=== PATIENT | female | born 1945 | race Caucasian/White ===

== ENCOUNTER 2018-04-22 21:58 | Inpatient (IN) ==
--- NOTE | 2018-04-22 22:52 | Emergency Department Note ---
Disposition Clinical Impression: Hyponatremia, RENETTA (acute kidney injury), Sepsis secondary to UTI, Hematuria, Pyelonephritis UTI (urinary tract infection) Qualifiers: Urinary tract infection type: acute pyelonephritis Qualified Code(s): N10 - Acute pyelonephritis Leukocytosis Qualifiers: Leukocytosis type: other Qualified Code(s): D72.828 - Other elevated white blood cell count Disposition: Admitted As Inpatient Condition: Fair Time of Disposition: 01:45 Recheck wound or abnormal lab - General Chief Complaint: ED Recheck/Abnormal Lab/Rx Stated Complaint: abnormal labs Time Seen by Provider: 04/22/18 22:16 Source: patient, family Mode of arrival: ambulatory Limitations: no limitations Nursing Notes Reviewed: Yes Vital Signs Reviewed: Yes - History of Present Illness HPI Narrative: Patient presents to the ED for abnormal lab work. Patient saw her PCP yesterday who ordered lab work and was called today to come to the ER for a leukocytosis and elevated inflammatory markers as well as acute kidney injury. Patient has had nausea, vomiting and diarrhea for the last week. He also had a mild nonproductive cough. Has had some chills but no fevers. Just felt really weak and tired. No real shortness of breath or chest pain. Has some diffuse, crampy abdominal pain. No melena or hematochezia. - Related Data Allergies Allergy/AdvReac Type Severity Reaction Status Date / Time Penicillins Allergy Rash Verified 04/22/18 22:04 Review of Systems: As reviewed in the HPI. All other systems reviewed are negative or normal. Past Medical History - Past Medical History Attestation: Yes The following information was validated with the patient. Source: patient Medical history: Reports: arthritis, hypertension Psychiatric history: Reports: no psych history - Social History Smoking Status: Never smoker Alcohol use: Reports: occasionally Drug use: Reports: none Physical Exam CONSTITUTIONAL: [well appearing in no acute distress] SKIN: [Warm, dry, and intact without rash] EYES: [extraocular movements are grossly intact, clear conjunctiva] HENT: [Normocephalic, atraumatic, moist mucus membranes] NECK: [no obvious swelling, normal range of motion] PULMONARY: [normal chest rise and fall, no respiratory distress or stridor CARDIOVASCULAR: [regular rate, distal extremities are warm and well perfused, cap refill normal] GASTROINSTESTINAL: [nondistended, mildly tender] GENITOURINARY: [deferred] NEUROLOGIC: [normal speech, moves all extremities] MUSCULOSKELETAL: [no gross deformities, atraumatic] PSYCHIATRIC: [normal mood and affect] - General Limitations: no limitations General appearance: alert, in no apparent distress Course - Consultations Consultation #1: Patient admitted to the hospitalist service. Time: 01:45 Vital Signs Temperature 98.2 F 04/22/18 22:04 Pulse Rate 96 04/22/18 22:04 Respiratory Rate 20 04/22/18 22:04 Blood Pressure 107/70 04/22/18 22:04 O2 Sat by Pulse Oximetry 92 04/22/18 22:04 Temperature 99.7 F H 04/23/18 02:50 Pulse Rate 106 04/23/18 02:50 Respiratory Rate 18 04/23/18 02:50 Blood Pressure 112/75 04/23/18 02:50 O2 Sat by Pulse Oximetry 90 04/23/18 02:50 Oxygen Delivery Oxygen Delivery Room Air Recheck wound or abnormal lab - Lab Data Result diagrams: 04/22/18 23:12 Lab Results 04/22/18 04/22/18 04/22/18 Range/Units 23:12 23:40 23:40 Sodium 131 L (136-145) mEq/L Potassium 3.6 (3.5-5.1) mEq/L Chloride 98 (98-107) mEq/L Carbon Dioxide 22 L (23-29) mEq/L BUN 48 H (8-23) mg/dL Creatinine 2.36 H (0.60-1.20) mg/dL Est GFR ( Amer) 25 L (> 60) Est GFR (Non-Af Amer) 20 L (> 60) BUN/Creatinine Ratio 20 (6-26) Glucose 129 H (70-105) mg/dL Calculated Osmolality 286 (280-300) Lactic Acid (0.5-2.2) mmol/L Calcium 8.8 (8.6-10.3) mg/dL Phosphorus 2.2 L (2.7-4.5) mg/dL Creatine Kinase 35 (30-223) Units/L Albumin 3.3 L (3.5-5.7) g/dL Urine Color Yellow (Yellow) Urine Clarity Turbid A (Clear) Urine pH 5.5 (5.0-8.0) pH Units Ur Specific [place] 1.015 (1.010-1.025) Urine Protein 100 H (Neg-Trace) mg/dL Urine Glucose (UA) Normal (Normal) mg/dL Urine Ketones Negative (Negative) mg/dL Urine Blood Large H (Negative) Urine Nitrite Negative (Negative) Urine Bilirubin Negative (Negative) Urine Urobilinogen Normal (Normal) mg/dL Ur Leukocyte Esterase Large H (Negative) Urine Microscopic RBC 15-30 H (0-3) per hpf Urine Microscopic WBC TNTC H (0-3) per hpf Ur Squamous Epith Cells Many H (None-Few) per lpf Urine Bacteria Many H (None-Few) per hpf Granular Casts Present H (None Seen) per lpf Ur Culture Indicated? NO. A (NO) Urine Creatinine 138 mg/dL Urine Sodium 24.0 mEq/L 04/23/18 Range/Units 01:00 Sodium (136-145) mEq/L Potassium (3.5-5.1) mEq/L Chloride (98-107) mEq/L Carbon Dioxide (23-29) mEq/L BUN (8-23) mg/dL Creatinine (0.60-1.20) mg/dL Est GFR ( Amer) (> 60) Est GFR (Non-Af Amer) (> 60) BUN/Creatinine Ratio (6-26) Glucose (70-105) mg/dL Calculated Osmolality (280-300) Lactic Acid 1.0 (0.5-2.2) mmol/L Calcium (8.6-10.3) mg/dL Phosphorus (2.7-4.5) mg/dL Creatine Kinase (30-223) Units/L Albumin (3.5-5.7) g/dL Urine Color (Yellow) Urine Clarity (Clear) Urine pH (5.0-8.0) pH Units Ur Specific [place] (1.010-1.025) Urine Protein (Neg-Trace) mg/dL Urine Glucose (UA) (Normal) mg/dL Urine Ketones (Negative) mg/dL Urine Blood (Negative) Urine Nitrite (Negative) Urine Bilirubin (Negative) Urine Urobilinogen (Normal) mg/dL Ur Leukocyte Esterase (Negative) Urine Microscopic RBC (0-3) per hpf Urine Microscopic WBC (0-3) per hpf Ur Squamous Epith Cells (None-Few) per lpf Urine Bacteria (None-Few) per hpf Granular Casts (None Seen) per lpf Ur Culture Indicated? (NO) Urine Creatinine mg/dL Urine Sodium mEq/L Attestation Statement - Attestation Attestation: I examined this patient and my medical decision-making was reviewed with the Resident Physician. I agree with the documented findings, disposition and treatment plan as described except to the extent set forth below. The high probability of a clinically significant, sudden or life threatening deterioration of the [renovascular] system(s) required my full and direct attention, intervention and personal management. The aggregate critical care time was [20] minutes. This time is in addition to time spent performing reported procedures but includes the following: [x] Data Review and interpretation [x] Patient assessment and monitoring of vital signs [x] Documentation [x] Medication orders and management
[2018-04-22 23:47] LABS: Bilirubin,Urine Negative (Negative); Blood,Urine Large (Negative); Clarity,Urine Turbid (Clear); Color,Urine Yellow (Yellow); Glucose,Urine (UA) Normal (Normal); Ketones,Urine Negative (Negative); Leukocyte Esterase,Urine Large (Negative); Nitrite,Urine Negative (Negative); PH,Urine 5.5 pH Units (5.0-8.0); Protein,Urine 100 mg/dL (Neg-Trace); Specific Gravity,Urine 1.015 (1.010-1.025); Urobilinogen,Urine Normal (Normal)
[2018-04-22 23:50] LABS: Bacteria,Urine Many per hpf (None-Few); RBC,Urine 15-30 per hpf (0-3); Squamous Epithelial Cell,Urine Many per lpf (None-Few); WBC,Urine TNTC per hpf (0-3)
[2018-04-22 23:53] LABS: Albumin 3.3 g/dL (3.5-5.7); Calcium 8.8 mg/dL (8.6-10.3); Phosphorous 2.2 mg/dL (2.7-4.5); Potassium 3.6 mEq/L (3.5-5.1)
[2018-04-23 00:01] LABS: Granular Casts,Urine Present per lpf (None Seen)
[2018-04-23] MEDS ORDERED: 0.9 % Sodium Chloride 1,000 ML IVC ONE ×2 (00:08→01:46)
[2018-04-23] MEDS ORDERED: Levofloxacin 750 MG/150 ML 750 MG/150 ML BAG IVPB ONE (00:43)
[2018-04-23] MEDS ORDERED: Naloxone 0.4 MG/ML INJ IVP PRN (02:02)
[2018-04-23] MEDS ORDERED: Ondansetron 4 MG/2 ML VIAL IVP PRN (02:04)
[2018-04-23] MEDS ORDERED: Prochlorperazine 10 MG/2 ML VIAL IVP PRN (02:04)
--- NOTE | 2018-04-23 02:08 | Internal Med History&Physical ---
Date of Encounter: 04/23/18 Time of Encounter: 02:06 Internal Medicine - H&P: HPI Chief complaint: N/V/D , flu like symptoms History of present illness: Ms. Mantilla is a 72 year old female with history of hypertension, hyperlipidemia who presents with nausea vomiting diarrhea and felt that she had contracted the flu. She develops symptoms since Thursday with persistent nausea vomiting periumbilical abdominal pain associated with nonbloody diarrhea and relative anorexia with decreased by mouth intake. She felt that she might have had the flu with associated fevers and chills. She has a nonproductive cough that associated with a subjective sensation that her "head is exploding" On review she denies any dysuria or urinary frequency or lower urinary tract symptoms. She saw her PCP today and was advised for admission after being found to be in acute kidney injury. CT/CT abd pelvis wo no iv no oral IMPRESSION: Bibasilar airspace disease, atelectasis and/or pneumonia. Fatty infiltration of the liver. Bilateral perinephric and periureteral stranding, not well evaluated on this noncontrast study. Correlation for pyelonephritis is recommended. Small hiatal hernia. Distal colonic diverticulosis without radiographic evidence of active inflammation. XR/XR chest 2V IMPRESSION: Possible trace pleural effusions with bibasilar scarring or atelectasis. Past Med Surg Social Fam HX - Past Medical History Medical history: arthritis, hypertension Psychiatric history: no psych history - Past Surgical History Additional surgical history: knee surgery - Social History Smoking Status: Never smoker Alcohol use: occasionally Drug use: none Internal Medicine - H&P: Meds 3 Allergy/AdvReac Type Severity Reaction Status Date / Time Penicillins Allergy Rash Verified 04/22/18 22:04 All Systems PM: A 10-system review of systems was performed and is negative for pertinent findings except as documented above in the HPI. Review of systems: ROS 14 point review of systems reviewed as best as possible given presentation. Pertinent positive or negative as per HPI or otherwise reviewed as negative - Constitutional Vitals: Temp Pulse Resp BP Pulse Ox 98.2 F 91 16 118/75 91 04/22/18 22:04 04/23/18 00:06 04/23/18 00:06 04/23/18 00:06 04/23/18 00:06 Exam: General - AAO x 3 Psych - Appropriate affect/speech. No agitation Eyes - BRISEIDA. Eye lids intact. No scleral icterus Neuro - No gross peripheral or central neuro deficits on inspection Heart - Sinus. RRR. S1 and S2 present. No added HS/murmurs appreciated. No elevated JVD appreciated. Lung - Adequate air entry b/l, bibasal crackles appreciated. No wheeze GI - Soft, non-tender. No hepatosplenomegaly/ascites. BS+ - No CVA/suprapubic tenderness or palpable bladder distension Skin - Intact. No rash/petechiae/ecchymosis. Warm extremities Internal Med - H&P Results - Labs CBC & Chem 7: 04/22/18 23:12 - Assessment and plan (1) Viral syndrome Current Visit: Yes Status: Acute Assessment and plan: possible viral syndrome supportive care (2) PNA (pneumonia) Current Visit: Yes Status: Acute Assessment and plan: possible viral syndrome with superimposed PNA send serologies mucinex spirometer empiric IV levaquin Qualifiers: Pneumonia type: due to unspecified organism Laterality: bilateral Lung location: lower lobe of lung Qualified Code(s): J18.1 - Lobar pneumonia, unspecified organism (3) RENETTA (acute kidney injury) Current Visit: Yes Status: Acute Assessment and plan: due to pre-renal IVF trend labs (4) Hyponatremia Current Visit: Yes Status: Acute Assessment and plan: 2/2 dehydration, treat with hydration (5) Leukocytosis Current Visit: Yes Status: Acute Assessment and plan: monitor for now Qualifiers: Leukocytosis type: other Qualified Code(s): D72.828 - Other elevated white blood cell count (6) HTN (hypertension) Current Visit: Yes Status: Acute Assessment and plan: hold meds for now given illness, RENETTA restart when symptoms better Qualifiers: Hypertension type: essential hypertension Qualified Code(s): I10 - Essential (primary) hypertension (7) Pyuria Current Visit: Yes Status: Acute Assessment and plan: contaminated, due true UTI (8) HLD (hyperlipidemia) Current Visit: Yes Status: Acute Assessment and plan: restart statin when she feels better Qualifiers: Hyperlipidemia type: mixed hyperlipidemia Qualified Code(s): E78.2 - Mixed hyperlipidemia - Time Spent With Patient Total time spent is greater than 50% in coordination of care (as documented) at patient's floor/unit and/or counseling patient:
[2018-04-23] MEDS: Ringers Solution, Lactated 1,000 ML IVC SCH (03:04)
--- NOTE | 2018-04-23 03:29 | Emergency Department Note ---
Disposition Clinical Impression: Hyponatremia, RENETTA (acute kidney injury), Sepsis secondary to UTI, Hematuria, Pyelonephritis UTI (urinary tract infection) Qualifiers: Urinary tract infection type: acute pyelonephritis Qualified Code(s): N10 - Acute pyelonephritis Leukocytosis Qualifiers: Leukocytosis type: other Qualified Code(s): D72.828 - Other elevated white blood cell count Disposition: Admitted As Inpatient Condition: Fair General Adult HPI - General Chief complaint: ED Recheck/Abnormal Lab/Rx Stated complaint: abnormal labs Time Seen by Provider: 04/22/18 22:16 Source: patient, family Mode of arrival: ambulatory Limitations: no limitations - History of Present Illness Pain Scale: 0 - Related Data Allergies Allergy/AdvReac Type Severity Reaction Status Date / Time Penicillins Allergy Rash Verified 04/22/18 22:04 Past Medical History - Past Medical History Medical history: Reports: arthritis, hypertension Psychiatric history: Reports: no psych history - Social History Smoking Status: Never smoker Smokeless Tobacco Status: No Alcohol use: Reports: occasionally Drug use: Reports: none Physical Exam - General Limitations: no limitations General appearance: alert, in no apparent distress Course Vital Signs Temperature 98.2 F 04/22/18 22:04 Pulse Rate 96 04/22/18 22:04 Respiratory Rate 20 04/22/18 22:04 Blood Pressure 107/70 04/22/18 22:04 O2 Sat by Pulse Oximetry 92 04/22/18 22:04 Temperature 99.7 F H 04/23/18 02:50 Pulse Rate 106 04/23/18 02:50 Respiratory Rate 18 04/23/18 02:50 Blood Pressure 112/75 04/23/18 02:50 O2 Sat by Pulse Oximetry 90 04/23/18 02:50 Oxygen Delivery Oxygen Delivery Room Air Medical Decision Making - Lab Data Result diagrams: 04/22/18 23:12 Lab Results 04/22/18 04/22/18 04/22/18 Range/Units 23:12 23:40 23:40 Sodium 131 L (136-145) mEq/L Potassium 3.6 (3.5-5.1) mEq/L Chloride 98 (98-107) mEq/L Carbon Dioxide 22 L (23-29) mEq/L BUN 48 H (8-23) mg/dL Creatinine 2.36 H (0.60-1.20) mg/dL Est GFR ( Amer) 25 L (> 60) Est GFR (Non-Af Amer) 20 L (> 60) BUN/Creatinine Ratio 20 (6-26) Glucose 129 H (70-105) mg/dL Calculated Osmolality 286 (280-300) Lactic Acid (0.5-2.2) mmol/L Calcium 8.8 (8.6-10.3) mg/dL Phosphorus 2.2 L (2.7-4.5) mg/dL Creatine Kinase 35 (30-223) Units/L Albumin 3.3 L (3.5-5.7) g/dL Urine Color Yellow (Yellow) Urine Clarity Turbid A (Clear) Urine pH 5.5 (5.0-8.0) pH Units Ur Specific [place] 1.015 (1.010-1.025) Urine Protein 100 H (Neg-Trace) mg/dL Urine Glucose (UA) Normal (Normal) mg/dL Urine Ketones Negative (Negative) mg/dL Urine Blood Large H (Negative) Urine Nitrite Negative (Negative) Urine Bilirubin Negative (Negative) Urine Urobilinogen Normal (Normal) mg/dL Ur Leukocyte Esterase Large H (Negative) Urine Microscopic RBC 15-30 H (0-3) per hpf Urine Microscopic WBC TNTC H (0-3) per hpf Ur Squamous Epith Cells Many H (None-Few) per lpf Urine Bacteria Many H (None-Few) per hpf Granular Casts Present H (None Seen) per lpf Ur Culture Indicated? NO. A (NO) Urine Creatinine 138 mg/dL Urine Sodium 24.0 mEq/L 04/23/18 Range/Units 01:00 Sodium (136-145) mEq/L Potassium (3.5-5.1) mEq/L Chloride (98-107) mEq/L Carbon Dioxide (23-29) mEq/L BUN (8-23) mg/dL Creatinine (0.60-1.20) mg/dL Est GFR ( Amer) (> 60) Est GFR (Non-Af Amer) (> 60) BUN/Creatinine Ratio (6-26) Glucose (70-105) mg/dL Calculated Osmolality (280-300) Lactic Acid 1.0 (0.5-2.2) mmol/L Calcium (8.6-10.3) mg/dL Phosphorus (2.7-4.5) mg/dL Creatine Kinase (30-223) Units/L Albumin (3.5-5.7) g/dL Urine Color (Yellow) Urine Clarity (Clear) Urine pH (5.0-8.0) pH Units Ur Specific [place] (1.010-1.025) Urine Protein (Neg-Trace) mg/dL Urine Glucose (UA) (Normal) mg/dL Urine Ketones (Negative) mg/dL Urine Blood (Negative) Urine Nitrite (Negative) Urine Bilirubin (Negative) Urine Urobilinogen (Normal) mg/dL Ur Leukocyte Esterase (Negative) Urine Microscopic RBC (0-3) per hpf Urine Microscopic WBC (0-3) per hpf Ur Squamous Epith Cells (None-Few) per lpf Urine Bacteria (None-Few) per hpf Granular Casts (None Seen) per lpf Ur Culture Indicated? (NO) Urine Creatinine mg/dL Urine Sodium mEq/L Attestation Statement - Attestation Attestation: I examined this patient and my medical decision-making was reviewed with the Resident Physician. I agree with the documented findings, disposition and treatment plan as described except to the extent set forth below. 72-year-old female comes ED because of general malaise, coughing, generalized weakness. Symptoms have been evolving for the past couple days prompting her to see her primary care physician. Labs obtained and she was later called to go to the ED for renal insufficiency. She has had some subjective fevers. Complains of mild intermittent headache. He also has pain across further chest with deep breathing. Cough has been nonproductive. No dysuria, hematuria or polyuria. No focal joint pain but does complain of diffuse myalgia Pleasant elderly female who is in no apparent physiologic distress. He is remains are dry. Neck is supple without meningeal signs. No cervical adenopathy. Chest with migrating rhonchi in the bases. No focal consolidation. No current wheezing. Tender to palpation along the anterior chest wall. Cardiac exam regular abdomen soft, nondistended and nontender to palpation. Extremities warm and dry. Her labs from earlier reviewed and she had significant leukocytosis with white count of 18,000. She had marked decrease in her baseline renal function and marketed elevation of her CRP and sedimentation rate. Urine with significant large number leukocytes, negative nitrates. CT abdomen consistent with bilateral hydronephrosis but without obvious ureteral calculi. Also questionable basilar pneumonia. She started on broad-spectrum antibiotics and will be admitted for further treatment and evaluation.
[2018-04-23] MEDS ORDERED: Haloperidol Lactate 5 MG/ML VIAL IVP ONE (04:07)
[2018-04-23 05:43] LABS: Calcium 8.1 mg/dL (8.6-10.3); Potassium 4.2 mEq/L (3.5-5.1)
[2018-04-23] MEDS ORDERED: 0.9 % Sodium Chloride 1,000 ML IVC SCH (07:00)
[2018-04-23] MEDS: *HR* Heparin 5,000 UNIT/ML VIAL SQ SCH ×3 (07:03→20:47)
[2018-04-23] MEDS: Acetaminophen 325 MG TABLET PO PRN ×2 (07:43→15:50)
[2018-04-23 12:02] LABS: Adenovirus Not Detected (Not Detect); Bordetella Pertussis Not Detected (Not Detect); Chlamydophila pneumoniae Not Detected (Not Detect); Coronavirus 229E Not Detected (Not Detect); Coronavirus HKU1 Not Detected (Not Detect); Coronavirus NL63 Not Detected (Not Detect); Coronavirus OC43 Not Detected (Not Detect); Human Metapneumovirus Not Detected (Not Detect); Human Rhinovirus/Enterovirus Not Detected (Not Detect); Influenza A Subtype 2009 H1 Not Detected (Not Detect); Influenza A Untypeable Not Detected (Not Detect); Influenza B Not Detected (Not Detect); Mycoplasma pneumoniae Not Detected (Not Detect); Parainfluenza Virus 1 Not Detected (Not Detect); Parainfluenza Virus 2 Not Detected (Not Detect); Parainfluenza Virus 3 Not Detected (Not Detect); Parainfluenza Virus 4 Not Detected (Not Detect); Respiratory Syncytial Virus Not Detected (Not Detect)
--- NOTE | 2018-04-23 16:21 | Internal Med Progress Note ---
Date of Encounter: 04/23/18 Time of Encounter: 11:30 - Assessment and plan (1) Leukocytosis Current Visit: Yes Status: Acute Assessment and plan: Secondary to to sepsis Qualifiers: Leukocytosis type: other Qualified Code(s): D72.828 - Other elevated white blood cell count (2) Hyponatremia Current Visit: Yes Status: Acute (3) RENETTA (acute kidney injury) Current Visit: Yes Status: Acute (4) HTN (hypertension) Current Visit: Yes Status: Acute Qualifiers: Hypertension type: essential hypertension Qualified Code(s): I10 - Essential (primary) hypertension (5) PNA (pneumonia) Current Visit: Yes Status: Acute Qualifiers: Pneumonia type: due to unspecified organism Laterality: bilateral Lung location: lower lobe of lung Qualified Code(s): J18.1 - Lobar pneumonia, unspecified organism (6) Pyuria Current Visit: Yes Status: Acute Assessment and plan: Suspect urinary tract infection with sepsis present on admission -too numerous to recount White blood cells on urine, (she did have lots of epithelial cells however she is symptomatic), symptoms concerning dysuria and suprapubic abdominal pain Abdominal CT suggests bibasal pneumonia versus atelectasis. She is not complaining of respiratory symptoms she does have a dry cough. We will monitor. Patient is on Levaquin day #1 which should cover both. If fevers persist or if culture data dictates will further tailor antibiotics. Other than fever her vitals are stable. (7) HLD (hyperlipidemia) Current Visit: Yes Status: Acute Assessment and plan: restart statin when she feels better Qualifiers: Hyperlipidemia type: mixed hyperlipidemia Qualified Code(s): E78.2 - Mixed hyperlipidemia - Time Spent With Patient Total time spent is greater than 50% in coordination of care (as documented) at patient's floor/unit and/or counseling patient: 25 - 35 minutes - Subjective Interval history: Ms. Mantilla is a 72 year old female with history of hypertension, hyperlipidemia who presents with nausea vomiting diarrhea and felt that she had contracted the flu. She develops symptoms since Thursday with persistent nausea vomiting periumbilical abdominal pain associated with nonbloody diarrhea and relative anorexia with decreased by mouth intake. She felt that she might have had the flu with associated fevers and chills. She has a nonproductive cough that associated with a subjective sensation that her "head is exploding" On review she denies any dysuria or urinary frequency or lower urinary tract symptoms. She saw her PCP today and was advised for admission after being found to be in acute kidney injury. 04/23: Patient continues to have fevers. She also complains of lower abdominal suprapubic discomfort, and sometimes a sensation of her urinary stream having difficulty coming out. She denies any chest pain or shortness of breath. No nausea, vomiting, diarrhea. She states she has a headache. She is not a caffeine drinker. She has no neck pain or stiffness. She does have a nonproductive cough. - Constitutional Vitals: Temp Pulse Resp BP Pulse Ox 101.1 F H 62 15 119/64 92 04/23/18 15:43 04/23/18 13:50 04/23/18 13:50 04/23/18 13:50 04/23/18 13:50 General appearance: Present: mild distress, A&O X 3 Exam: Diaphoretic - Head Head exam: Present: atraumatic, normocephalic - Eye Eye exam: Present: PERRL, conjuntiva pink, sclera anicteric Pupils: Present: PERRL - Neck Neck exam general surgery: Present: supple, trachea midline. Absent: lymphadenopathy - Respiratory Respiratory exam: Present: decreased breath sounds. Absent: accessory muscle use, rales, rhonchi, wheezes - Cardiovascular Cardiovascular exam: Present: RRR, +S1, +S2. Absent: diastolic murmur, gallop, rubs, systolic murmur - GI/Abdominal GI/Abdominal exam: Present: normal bowel sounds, soft, tenderness, no peritoneal signs. Absent: distended Additional comments: Suprapubic tenderness to palpation - Extremities Exam Extremities exam: Present: warm, radial pulses palpable and symmetrical. Absent : calf tenderness, cyanotic, pedal edema - Neurological Exam Neurological exam: Present: CN II-XII intact, oriented X3, no focal deficits. Absent: pronater drift, facial droop, speech deficit - Skin Skin exam: Present: diaphoretic, dry, intact Additional comments: Capillary refill less than 2.5 second Internal Medicine: Result - Labs CBC & Chem 7: 04/23/18 04:46 Labs: BMP 04/23/18 04:46 Sodium 134 L Potassium 4.2 Chloride 104 Carbon Dioxide 18 L BUN 46 H Creatinine 2.28 H Glucose 120 H Calcium 8.1 L Consult Discharge Plan - Plan Referrals: Brenton Conklin MD [Primary Care Provider] -
[2018-04-23 16:37] LABS: Basophils % 0.1 %; Eosinophils % 0.2 %; Hematocrit 37.6 % (35.3-44.9); Hemoglobin 13.2 g/dL (11.5-15.4); Immature Granulocytes % 0.8 % (0-4); Lymphocytes # 0.5 K/mcL (0.6-4.6); Mean Corpuscular HGB Conc 35.1 g/dL (31.6-35.5); Mean Corpuscular Hemoglobin 29.9 pg (28.0-33.3); Mean Corpuscular Volume 85.1 fL (83.0-100.0); Mean Platelet Volume 10.3 fL (9.4-12.4); Monocytes # 1.7 K/mcL (0.0-1.3); Monocytes % 10.3 %; Neutrophils # 14.4 K/mcL (1.6-8.9); Platelet Count 149 K/mcL (140-400); Red Blood Count 4.42 M/mcL (3.82-4.97); Red Cell Distribution Width 13.6 % (11.5-14.5); Segmented Neutrophils % 85.6 %
[2018-04-23] MEDS ORDERED: Albuterol 2.5 MG/3 ML NEBULIZER ONE (16:40)
[2018-04-23] MEDS: Albuterol 2.5 MG/3 ML NEBULIZER IH SCH ×3 (16:54→23:06)
[2018-04-23] MEDS: 0.9 % Sodium Chloride 1,000 ML IVC SCH (17:17)
[2018-04-24] MEDS: 0.9 % Sodium Chloride 1,000 ML IVC SCH ×3 (00:25→18:46)
[2018-04-24] MEDS: Acetaminophen 325 MG TABLET PO PRN ×2 (01:23→21:02)
[2018-04-24] MEDS: Albuterol 2.5 MG/3 ML NEBULIZER IH SCH ×6 (04:11→23:57)
[2018-04-24] MEDS: *HR* Heparin 5,000 UNIT/ML VIAL SQ SCH ×3 (05:20→21:03)
[2018-04-24 05:38] LABS: Calcium 7.6 mg/dL (8.6-10.3); Potassium 3.1 mEq/L (3.5-5.1)
[2018-04-24] MEDS ORDERED: Levofloxacin 500 MG/100 ML 500 MG/100 ML BAG IVPB SCH (09:00)
--- NOTE | 2018-04-24 13:02 | Internal Med Progress Note ---
Date of Encounter: 04/24/18 Time of Encounter: 11:00 - Assessment and plan (1) Pyelonephritis Current Visit: Yes Status: Acute Assessment and plan: Day #2 Levaquin Continue. IV fluids Port of care (2) Leukocytosis Current Visit: Yes Status: Acute Qualifiers: Leukocytosis type: other Qualified Code(s): D72.828 - Other elevated white blood cell count (3) Hyponatremia Current Visit: Yes Status: Acute Assessment and plan: 2/2 dehydration, treat with hydration 6/2: Improving, monitor. (4) RENETTA (acute kidney injury) Current Visit: Yes Status: Acute Assessment and plan: due to pre-renal IVF trend labs /: Renal function not improving. She had a CT of the abdominal and pelvis which showed no obstruction but did show bilateral perinephric and periureteral stranding, greater on the right. No stones. No hydronephrosis. Continue IV fluids, avoid nephrotoxins. Monitor. (5) HTN (hypertension) Current Visit: Yes Status: Acute Assessment and plan: hold meds for now given illness, RENETTA restart when symptoms better /: Blood pressure controlled Qualifiers: Hypertension type: essential hypertension Qualified Code(s): I10 - Essential (primary) hypertension (6) PNA (pneumonia) Current Visit: Yes Status: Acute Assessment and plan: possible viral syndrome with superimposed PNA send serologies mucinex spirometer empiric IV levaquin /: Patient remains on Levaquin Day #2 for urinary tract infection. I am not convinced she has pneumonia Qualifiers: Pneumonia type: due to unspecified organism Laterality: bilateral Lung location: lower lobe of lung Qualified Code(s): J18.1 - Lobar pneumonia, unspecified organism (7) HLD (hyperlipidemia) Current Visit: Yes Status: Acute Qualifiers: Hyperlipidemia type: mixed hyperlipidemia Qualified Code(s): E78.2 - Mixed hyperlipidemia - Time Spent With Patient Total time spent is greater than 50% in coordination of care (as documented) at patient's floor/unit and/or counseling patient: - Subjective Interval history: Ms. Mantilla is a 72 year old female with history of hypertension, hyperlipidemia who presents with nausea vomiting diarrhea and felt that she had contracted the flu. She develops symptoms since Thursday with persistent nausea vomiting periumbilical abdominal pain associated with nonbloody diarrhea and relative anorexia with decreased by mouth intake. She felt that she might have had the flu with associated fevers and chills. She has a nonproductive cough that associated with a subjective sensation that her "head is exploding" On review she denies any dysuria or urinary frequency or lower urinary tract symptoms. She saw her PCP today and was advised for admission after being found to be in acute kidney injury. 04/23: Patient continues to have fevers. She also complains of lower abdominal suprapubic discomfort, and sometimes a sensation of her urinary stream having difficulty coming out. She denies any chest pain or shortness of breath. No nausea, vomiting, diarrhea. She states she has a headache. She is not a caffeine drinker. She has no neck pain or stiffness. She does have a nonproductive cough. 04/24: Patient states she feels very weak. No chest pain or shortness of breath. Not hungry. No nausea or vomiting. No urinary complaints today. No longer complaining of suprapubic discomfort. - Constitutional Vitals: Temp Pulse Resp BP Pulse Ox 98.9 F 101 16 107/75 94 04/24/18 10:18 04/24/18 10:18 04/24/18 12:07 04/24/18 10:18 04/24/18 12:07 General appearance: Present: mild distress, A&O X 3 - Head Head exam: Present: atraumatic, normocephalic - Eye Eye exam: Present: PERRL, conjuntiva pink, sclera anicteric Pupils: Present: PERRL - Neck Neck exam general surgery: Present: supple, trachea midline. Absent: lymphadenopathy - Respiratory Respiratory exam: Present: CTAB. Absent: accessory muscle use, rales, rhonchi, wheezes - Cardiovascular Cardiovascular exam: Present: RRR, +S1, +S2. Absent: diastolic murmur, gallop, rubs, systolic murmur - GI/Abdominal GI/Abdominal exam: Present: normal bowel sounds, soft, no peritoneal signs. Absent: distended, tenderness - Extremities Exam Extremities exam: Present: pedal edema, warm, radial pulses palpable and symmetrical. Absent: calf tenderness, cyanotic - Neurological Exam Neurological exam: Present: CN II-XII intact, oriented X3, no focal deficits. Absent: pronater drift, facial droop, speech deficit - Skin Skin exam: Present: dry, intact Internal Medicine: Result - Labs CBC & Chem 7: 04/23/18 16:24 04/24/18 04:58 Labs: Short CBC 04/23/18 Range/Units 16:24 WBC 16.8 H (4.3-11.1) K/mcL Hgb 13.2 (11.5-15.4) g/dL Hct 37.6 (35.3-44.9) % Plt Count 149 (140-400) K/mcL Neutrophils # 14.4 H (1.6-8.9) K/mcL BMP 04/24/18 04:58 Sodium 134 L Potassium 3.1 L Chloride 106 Carbon Dioxide 18 L BUN 41 H Creatinine 2.31 H Glucose 134 H Calcium 7.6 L Consult Discharge Plan - Plan Referrals: Brenton Conklin MD [Primary Care Provider] -
[2018-04-24] MEDS: Nystatin SUSP 5 ML UD.LIQ PO SCH ×3 (13:39→21:03)
[2018-04-25] MEDS: 0.9 % Sodium Chloride 1,000 ML IVC SCH ×3 (02:52→16:23)
[2018-04-25] MEDS ORDERED: amLODIPine 5 MG TABLET PO SCH (04:13)
[2018-04-25] MEDS: Albuterol 2.5 MG/3 ML NEBULIZER IH SCH ×6 (04:23→23:36)
[2018-04-25] MEDS: *HR* Heparin 5,000 UNIT/ML VIAL SQ SCH ×3 (05:39→21:26)
[2018-04-25] MEDS: Acetaminophen 325 MG TABLET PO PRN (05:40)
[2018-04-25 05:52] LABS: Basophils # 0.1 K/mcL (0.0-0.2); Basophils % 0.4 %; Eosinophils # 0.2 K/mcL (0.0-0.6); Eosinophils % 0.8 %; Hematocrit 37.7 % (35.3-44.9); Hemoglobin 12.8 g/dL (11.5-15.4); Immature Granulocytes % 3.8 % (0-4); Lymphocytes # 0.9 K/mcL (0.6-4.6); Lymphocytes % 4.7 %; Mean Corpuscular Hemoglobin 29.6 pg (28.0-33.3); Mean Corpuscular Volume 87.1 fL (83.0-100.0); Mean Platelet Volume 10.4 fL (9.4-12.4); Monocytes # 1.7 K/mcL (0.0-1.3); Monocytes % 9.4 %; Neutrophils # 14.5 K/mcL (1.6-8.9); Platelet Count 181 K/mcL (140-400); Red Blood Count 4.33 M/mcL (3.82-4.97); Red Cell Distribution Width 14.4 % (11.5-14.5); Segmented Neutrophils % 80.9 %
[2018-04-25 05:54] LABS: Calcium 7.5 mg/dL (8.6-10.3); Magnesium 1.9 mg/dL (1.6-2.6)
[2018-04-25] MEDS ORDERED: Potassium Chloride 40 MEQ, Lidocaine 1% 2 ML in D5% in Water 500 ML IVPB ONE (06:30)
[2018-04-25] MEDS ORDERED: 0.9 % Sodium Chloride 1,000 ML IVC ONE (06:42)
[2018-04-25] MEDS: amLODIPine 5 MG TABLET PO SCH (08:41)
[2018-04-25] MEDS: Nystatin SUSP 5 ML UD.LIQ PO SCH ×4 (08:41→21:26)
--- NOTE | 2018-04-25 12:12 | Internal Med Progress Note ---
Date of Encounter: 04/25/18 Time of Encounter: 10:00 - Assessment and plan (1) Pyelonephritis Current Visit: Yes Status: Acute Assessment and plan: CT Scan: CT/CT abd pelvis wo no iv no oral IMPRESSION: Bibasilar airspace disease, atelectasis and/or pneumonia. Fatty infiltration of the liver. Bilateral perinephric and periureteral stranding, not well evaluated on this noncontrast study. Correlation for pyelonephritis is recommended. Small hiatal hernia. Distal colonic diverticulosis without radiographic evidence of active inflammation. Day #3 Levaquin (chose this to cover both pyelo and poss of PNA). Continue. IV fluids Patient is doing well. Diet is advanced. Change to oral Levaquin. Currently day 3 of a planned 10-14 day course. (2) Hyponatremia Current Visit: Yes Status: Acute (3) RENETTA (acute kidney injury) Current Visit: Yes Status: Acute Assessment and plan: due to pre-renal IVF trend labs /: Acute Kidney Injury superimposed on CKD Stage 3. Renal function not improving. She had a CT of the abdominal and pelvis without contrast which showed no obstruction but did show bilateral perinephric and periureteral stranding, greater on the right. No stones. No hydronephrosis. Continue IV fluids, avoid nephrotoxins. Monitor. (4) HTN (hypertension) Current Visit: Yes Status: Acute Qualifiers: Hypertension type: essential hypertension Qualified Code(s): I10 - Essential (primary) hypertension (5) PNA (pneumonia) Current Visit: Yes Status: Acute Assessment and plan: /: Patient remains on Levaquin Day #3 for urinary tract infection. I am not convinced she has pneumonia We will continue Levaquin as this will cover both. See above. Qualifiers: Pneumonia type: due to unspecified organism Laterality: bilateral Lung location: lower lobe of lung Qualified Code(s): J18.1 - Lobar pneumonia, unspecified organism (6) HLD (hyperlipidemia) Current Visit: Yes Status: Acute Assessment and plan: restart statin when she feels better Qualifiers: Hyperlipidemia type: mixed hyperlipidemia Qualified Code(s): E78.2 - Mixed hyperlipidemia (7) Atrial fibrillation Current Visit: Yes Status: Acute Assessment and plan: Patient states she has a history of this. I do not know if this is classified as paroxysmal or chronic. She has seen cardiology. She is not on blood thinners and does not know the reason why. He is with a rapid heart rate today. Beta arlyn is started. I will add low-dose aspirin for stroke prevention. Strongly recommend she follow-up with her transit mix operator and/or primary care physician for discussion on anticoagulation. Qualifiers: Atrial fibrillation type: unspecified Qualified Code(s): I48.91 - Unspecified atrial fibrillation - Time Spent With Patient Total time spent is greater than 50% in coordination of care (as documented) at patient's floor/unit and/or counseling patient: 25 - 35 minutes - Subjective Interval history: Ms. Mantilla is a 72 year old female with history of hypertension, hyperlipidemia who presents with nausea vomiting diarrhea and felt that she had contracted the flu. She develops symptoms since Thursday with persistent nausea vomiting periumbilical abdominal pain associated with nonbloody diarrhea and relative anorexia with decreased by mouth intake. She felt that she might have had the flu with associated fevers and chills. She has a nonproductive cough that associated with a subjective sensation that her "head is exploding" On review she denies any dysuria or urinary frequency or lower urinary tract symptoms. She saw her PCP today and was advised for admission after being found to be in acute kidney injury. 04/23: Patient continues to have fevers. She also complains of lower abdominal suprapubic discomfort, and sometimes a sensation of her urinary stream having difficulty coming out. She denies any chest pain or shortness of breath. No nausea, vomiting, diarrhea. She states she has a headache. She is not a caffeine drinker. She has no neck pain or stiffness. She does have a nonproductive cough. 62: Patient states she feels very weak. No chest pain or shortness of breath. Not hungry. No nausea or vomiting. No urinary complaints today. No longer complaining of suprapubic discomfort. 04/25: Patient states she still feels a little "shaky" but otherwise is improving. She is advancing her diet. No nausea or vomiting. No fevers or chills. Abdominal pain. She remains mildly tachycardic with heart rates of 103 -123, irregular rhythm. Do not see listed in her record, patient states she has a history of atrial fibrillation, and states she has not been on blood thinners. She states she has seen a transit mix operator for this as well. He has been on Lopressor for this. - Constitutional Vitals: Temp Pulse Resp BP Pulse Ox 97.8 F 103 15 132/83 94 04/25/18 11:29 04/25/18 11:29 04/25/18 11:29 04/25/18 11:29 04/25/18 11:29 General appearance: Present: mild distress, A&O X 3 - Head Head exam: Present: atraumatic, normocephalic - Eye Eye exam: Present: PERRL, conjuntiva pink, sclera anicteric Pupils: Present: PERRL - Neck Neck exam general surgery: Present: supple, trachea midline. Absent: lymphadenopathy - Respiratory Respiratory exam: Present: CTAB. Absent: accessory muscle use, rales, rhonchi, wheezes - Cardiovascular Cardiovascular exam: Present: irregular rhythm, tachycardia. Absent: diastolic murmur, gallop, rubs, systolic murmur - GI/Abdominal GI/Abdominal exam: Present: normal bowel sounds, soft, no peritoneal signs. Absent: distended, tenderness - Extremities Exam Extremities exam: Present: warm, radial pulses palpable and symmetrical. Absent : calf tenderness, cyanotic, pedal edema - Neurological Exam Neurological exam: Present: CN II-XII intact, oriented X3, no focal deficits. Absent: pronater drift, facial droop, speech deficit - Skin Skin exam: Present: dry, intact Internal Medicine: Result - Labs CBC & Chem 7: 04/25/18 05:36 04/25/18 05:07 Labs: Short CBC 04/25/18 Range/Units 05:36 WBC 17.9 H (4.3-11.1) K/mcL Hgb 12.8 (11.5-15.4) g/dL Hct 37.7 (35.3-44.9) % Plt Count 181 (140-400) K/mcL Neutrophils # 14.5 H (1.6-8.9) K/mcL BMP 04/25/18 05:07 Sodium 137 Potassium 3.0 L Chloride 109 H Carbon Dioxide 18 L BUN 34 H Creatinine 2.12 H Glucose 140 H Calcium 7.5 L Consult Discharge Plan - Plan Referrals: Brenton Conklin MD [Primary Care Provider] -
[2018-04-26] MEDS: 0.9 % Sodium Chloride 1,000 ML IVC SCH ×3 (00:12→16:22)
[2018-04-26] MEDS: *HR* Metoprolol 5 MG/5 ML VIAL IVP PRN ×2 (01:18→08:07)
[2018-04-26] MEDS: Albuterol 2.5 MG/3 ML NEBULIZER IH SCH ×7 (04:03→23:05)
[2018-04-26] MEDS: Ringers Solution, Lactated 1,000 ML IVC SCH (05:33)
[2018-04-26] MEDS: *HR* Heparin 5,000 UNIT/ML VIAL SQ SCH ×2 (05:37→13:29)
[2018-04-26 07:08] LABS: Hematocrit 37.4 % (35.3-44.9); Hemoglobin 12.7 g/dL (11.5-15.4); Mean Corpuscular Hemoglobin 28.6 pg (28.0-33.3); Mean Corpuscular Volume 84.2 fL (83.0-100.0); Mean Platelet Volume 10.5 fL (9.4-12.4); Platelet Count 221 K/mcL (140-400); Red Blood Count 4.44 M/mcL (3.82-4.97); Red Cell Distribution Width 14.8 % (11.5-14.5)
[2018-04-26 07:55] LABS: Calcium 7.8 mg/dL (8.6-10.3); Potassium 3.9 mEq/L (3.5-5.1)
[2018-04-26 08:00] LABS: Mycoplasma pneumoniae IgG 0.07 U/L (<=0.09)
[2018-04-26] MEDS: Nystatin SUSP 5 ML UD.LIQ PO SCH ×3 (08:07→16:22)
[2018-04-26] MEDS: amLODIPine 5 MG TABLET PO SCH (08:07)
[2018-04-26] MEDS ORDERED: levoFLOXacin 750 MG TABLET PO SCH (09:00)
[2018-04-26] MEDS ORDERED: Aspirin 81 MG TAB.CHEW PO SCH (09:00)
[2018-04-26] MEDS ORDERED: Levofloxacin 750 MG/150 ML 750 MG/150 ML BAG IVPB SCH (09:00)
[2018-04-26 10:14] LABS: Eosinophils # 0.4 K/mcL (0.0-0.6); Lymphocytes # 1.2 K/mcL (0.6-4.6); Monocytes # 1.6 K/mcL (0.0-1.3); Neutrophils # 16.5 K/mcL (1.6-8.9); Platelet Estimate Normal (Normal)
--- NOTE | 2018-04-26 17:34 | Discharge Summary ---
- NOTES TO OUTPATIENT PROVIDER Notes to Outpatient Provider: F/u with PCP in one week. Stop taking Norvasc. Please start taking Metoprolol 50mg PO BID. Also added new medication Cardizem CD 180mg PO Daily Date of Encounter: 04/26/18 Time of Encounter: 17:26 - Discharge Diagnosis (1) PNA (pneumonia) Priority: Primary Status: Acute Qualifiers: Pneumonia type: due to unspecified organism Laterality: bilateral Lung location: lower lobe of lung Qualified Code(s): J18.1 - Lobar pneumonia, unspecified organism (2) Pyelonephritis Priority: Primary Status: Acute (3) Hyponatremia Priority: Secondary Status: Acute (4) RENETTA (acute kidney injury) Priority: Primary Status: Acute (5) HTN (hypertension) Priority: Secondary Status: Acute Qualifiers: Hypertension type: essential hypertension Qualified Code(s): I10 - Essential (primary) hypertension (6) HLD (hyperlipidemia) Priority: Secondary Status: Acute Qualifiers: Hyperlipidemia type: mixed hyperlipidemia Qualified Code(s): E78.2 - Mixed hyperlipidemia (7) Atrial fibrillation Priority: Secondary Status: Acute Qualifiers: Atrial fibrillation type: unspecified Qualified Code(s): I48.91 - Unspecified atrial fibrillation Hospital course: Ms. Mantilla is a 72 year old female with known PMH of Chronic A fib not on any anti coag follows with Card Dr. Jalloh, HTN and DJD pt presented to ER on with with abdominal pain, dehydration and lethargic. Pt happened to have acute pyrelonephritis and pneumonia. She was started on aggressive IV hydration and empirical abx. her symptoms started improving slowly. Pt seems to be in Afib with RVR. Pt stated she does have chronic Afib, takes Metoprolol at home, not on any anti coag. pt does follow with Card, who never suggested or recommend anti coag as per pt. Since her HR failrly controlled, I increased her Metoprolol to 50mg BID and started on Cardizem CD 180mg. Her CHADSVASC score 2, so recommend to continue as least ASA 81mg foir now and follow with Cardiology as an out pt. Her HR still fluctuation 90's-110, however pt does not want to stay in the hospital until it gets better.. So send her home with all the instructions. - Time Spent with Patient Total time spent providing and/or coordinating discharge services: - Discharge Medications Prescriptions: Aspirin 81 mg PO DAILY #30 tab.chew Diltiazem CD (24hr) [Cardizem CD] 180 mg PO DAILY #30 cap.er.24h levoFLOXacin [Levaquin] 750 mg PO Q48H #2 tablet Metoprolol [Lopressor] 50 mg PO BID 30 Days tablet Home Medications: Ascorbate Calcium [Vitamin C] 500 mg PO DAILY 04/23/18 [History] Atorvastatin Calcium [Lipitor] 20 mg PO HS 04/23/18 [History] Beta-Carotene [Beta Carotene] 10,000 unit PO DAILY 04/23/18 [History] Calcium Carbonate [Calcium] 500 mg PO DAILY 04/23/18 [History] Estradiol 1 appl VG AD 04/23/18 [History] Multivitamin [Multivitamins] 1 cap PO DAILY 04/23/18 [History] [place]-3/Dha/Epa/Fish Oil [Epa-Dha 720 Softgel] 1 cap PO DAILY 04/23/18 [History] Vitamin E 1,000 unit PO DAILY 04/23/18 [History] Aspirin 81 mg PO DAILY #30 tab.chew 04/26/18 [Rx] Diltiazem CD (24hr) [Cardizem CD] 180 mg PO DAILY #30 cap.er.24h 04/26/18 [Rx] Metoprolol [Lopressor] 50 mg PO BID 30 Days tablet 04/26/18 [Rx] levoFLOXacin [Levaquin] 750 mg PO Q48H #2 tablet 04/26/18 [Rx] Allergies/Adverse Reactions: 3 Allergy/AdvReac Type Severity Reaction Status Date / Time Penicillins Allergy Rash Verified 04/23/18 09:29 Date of admission: 04/23/18 02:02 Primary care physician: Brenton Conklin MD Consults: 04/24/18 13:09 Consult to Physical Therapy [CONS] Routine Comment: Evaluate, develop and implement POC Reason for Consult: weakness Does patient have active BEDREST order?: Yes Is patient medically & hemodynamically stable?: Yes Patient assessed for mobility or mobilized this visit?: No - Constitutional Vitals: Temp Pulse Resp BP Pulse Ox 97.5 F L 125 12 107/65 93 04/26/18 14:59 04/26/18 14:59 04/26/18 15:21 04/26/18 14:59 04/26/18 15:21 General appearance: Present: cooperative, A&O X 3, answers questions appropriately - Head Head exam: Present: atraumatic, normal inspection - Neck Neck exam general surgery: Present: supple - Respiratory Respiratory exam: Present: decreased breath sounds. Absent: rales, respiratory distress, rhonchi, wheezes - Cardiovascular Cardiovascular exam: Present: irregular rhythm, +S1, +S2 - GI/Abdominal GI/Abdominal exam: Present: normal bowel sounds, soft. Absent: rebound, rigid, tenderness - Extremities Exam Extremities exam: Absent: calf tenderness, pedal edema, tenderness - Back Exam Back exam: Absent: CVA tenderness (L), CVA tenderness (R) - Neurological Exam Neurological exam: Present: alert, oriented X3 - Psychiatric Psychiatric exam: Present: normal affect, normal mood - Skin Skin exam: Absent: rash - Patient Status Disposition: Home, Self-Care Condition: Good Overall status at discharge: patient is back to baseline - Discharge Instructions Follow Up With: Brenton Conklin MD [Primary Care Provider] - Jose Jalloh MD [Partnered Physician] - - Diet and Activity Activity: increase activity as tolerated Diet: low salt diet - VTE Documentation of Mechanical Device: Intermittent pneumatic compression device
--- NOTE | 2018-04-26 17:38 | Electrocardiograph Report ---
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
[2018-04-26] MEDS ORDERED: Diltiazem CD (24hr) 180 MG CAPSULE PO SCH (18:00)
[2018-04-26 19:08] VITALS: BP 135/81
== END 2018-04-26 19:45 | disposition home or self-care (01) | DRG 871 ==
LOC: EMEROO 21:58 → 3ANU 21:58 → SUATTDRO 04-23 02:02 → 3ANU 04-23 02:18
PROVIDERS: ADMIT Internal Medicine Hematology & Oncology; ATTEND Family Medicine